=== PATIENT | male | born 1950 | race Two or more races ===

== ENCOUNTER → 2017-01-03 | Outpatient (CLI) | payer OTHER ==
[~2017-01-03] MED LIST: ALBUTEROL17 GM INH; AMLODIPINE BESYL5 MG PO; APAP325 M2 PO; FLEXERIL10 MG PO; FLOVENT DI50 MCG/DIS INH; LEVEMIR SUBQ; LIPITOR20 MG PO; LISINOPRIL10 MG PO; METFORMIN PO; MOBIC15 MG PO; PROVENTIL INH0.5 ML NEB; TYLENOL325 M1 PO
--- NOTE | ~2017-01-03 | CT57 ---
[facility] A Service of [facility] & [facility] / [facility] RADIOLOGY TEXT RESULTS PATIENT: JAK ELIZABETH LOCATION: [facility] : 48 UNIT #: [id number] AGE: [address]: Justice Huggins MD SEX: M ORDER DR: [id number] [facility] [address] [place], [place] [address] [id number] MR#: [id number] Acc #: [id number] NAME: JAK ELIZABETH : 1950 SEX: M STUDY DATE/TIME: 01/03/2017 10:39 UNIT: [facility] ROOM: STUDY DESCRIPTION: CT Chest Wo Cont Attending Physician: Nilson Huggins M.D. Referring Physician: Nilson Huggins M.D. Ordering Physician: Nilson Huggins M.D. Primary Care Physician: No Primary Care Physician MEDICAL IMAGING REPORT This report is preliminary unless electronic signature is present EXAM Chest CT, no contrast. DATE OF EXAM 01/03/2017 INDICATIONS Lung nodule follow up, cough for 2 years. Diabetes, hypertension. Prior gastric surgery. Solitary pulmonary nodule follow up. TECHNIQUE Noncontrast CT of the chest was performed and compared with 12/17/2015. NOTE: This CT exam was performed with one or more of the following radiation dose reduction techniques: automatic exposure control, adjustment of mA and/or kV according to patient size, and iterative reconstruction. FINDINGS CT CHEST: The 2 noncalcified nodules in the right lung are essentially unchanged measuring 5 and 4 mm respectively. There is a tiny subpleural micronodule in the lingula measuring about 2 mm also unchanged in retrospect. No new suspicious pulmonary nodule identified. There are scattered areas of atelectasis and pleural thickening bilaterally. Included thyroid unremarkable. No pericardial effusion. There is incidental gynecomastia. Reactive-appearing axillary nodes are present. Aorta demonstrates no aneurysm. There is no mediastinal adenopathy. Included upper abdomen demonstrates no acute finding. There are several low-attenuation lesions within the liver. They cannot be further assessed with noncontrast technique, but are unchanged from the prior study of 1 year ago, and therefore, likely to be benign and may represent cysts. Osseous structures demonstrate no suspicious bone lesion. There is STS. [facility] A Service of [facility] RADIOLOGY TEXT RESULTS PATIENT: JAK ELIZABETH LOCATION: [facility] : 48 UNIT #: [id number] AGE: [address]: Justice Huggins MD SEX: M ORDER DR: degenerative change in the lower cervical spine. IMPRESSION 1. The noncalcified nodules in the right lung are unchanged over the past year. Tiny micronodule in the left lung also stable. Based on Fleischner criteria, if the patient is at low risk for malignancy, then no further follow up is necessary. If the patient is at elevated risk, then a repeat scan in 1 year would be recommended to confirm 2 years of stability. 2. No new suspicious pulmonary nodule identified. 3. Incidental gynecomastia and probably benign liver lesions, incompletely characterized on this noncontrast study. Dictated by... Johnnie Travis M.D. THIS IS AN ELECTRONICALLY VERIFIED REPORT Johnnie Travis M.D. at 01/03/2017 7:16 PM ALEX/nikolay TD: 01/03/2017 15:43 JOB #: [id number] MEDICAL IMAGING REPORT Page 1 of 1 COPY
== END | disposition home or self-care (01) ==
LOC: CCAT 10:08
DX: R91.1 Solitary pulmonary nodule (principal); J45.40 Moderate persistent asthma, uncomplicated; R05 Cough; R91.8 Other nonspecific abnormal finding of lung field
CPT/HCPCS: 71250